=== PATIENT | male | born 1995 | race African-American/Black ===

== ENCOUNTER 2017-11-12 23:20 | Emergency (ER) | payer OTHER ==
[~2017-11-12] VITALS: Ht 170.2 cm; Wt 65.8 kg
[~2017-11-12 23:20] MED LIST: NOHOMEMEDICATIONS; NORCO 5-325 TA1 EACH PO
[2017-11-13 00:44] VITALS: BP 113/42
== END 2017-11-13 00:44 | disposition home or self-care (01) ==
LOC: ER 23:20
DX: J02.0 Streptococcal pharyngitis (principal); R50.9 Fever, unspecified

== ENCOUNTER 2019-02-17 15:14 | Emergency (ER) | payer OTHER ==
[~2019-02-17] VITALS: Ht 170.2 cm; Wt 65.8 kg
[2019-02-17] MEDS ORDERED: TESSALON PERLE100 MG PO (16:00)
[2019-02-17] MEDS ORDERED: TYLENOL EXTRA500 MG PO (16:00)
[2019-02-17] MEDS ORDERED: IBUPROFEN 600600 M1 PO (16:00)
[2019-02-17] MEDS ORDERED: VENTOLIN HFA 1818 GM INH (16:00)
[2019-02-17 16:02] VITALS: BP 113/60
== END 2019-02-17 16:02 | disposition home or self-care (01) ==
LOC: ER 15:14
DX: J06.9 Acute upper respiratory infection, unspecified (principal); J45.909 Unspecified asthma, uncomplicated; Z87.891 Personal history of nicotine dependence